=== PATIENT | female | born 1935 | race Two or more races ===

== ENCOUNTER 2017-05-16 11:07 | Inpatient (IN) | payer OTHER ==
[~2017-05-16] VITALS: Ht 157.5 cm; Wt 63.5 kg
[~2017-05-16 11:07] MED LIST: BIOCAL SOFTGEL1 EACH; BUPROPION HYDROC1 GM; DIOVAN HCT 160-1 TAB; INTESTINEX680 MG PO; NAMENDA XR1 EACH; RAZADYNE ER16 M1; SYNTHROID100 MCG; TOPROL XL25 M1; ZANTAC150 MG PO
[2017-05-16] MEDS ORDERED: ECOTRIN81 MG (11:23)
[2017-05-19] MEDS ORDERED: PROTONIX40 MG PO (20:39)
== END 2017-05-19 20:48 | disposition home or self-care (01) | DRG 379 ==
LOC: ER 11:07 → SURH 22:33 → SEC-K 22:33 → SURH 05-17 01:15
PROC: 30233N1 Transfusion of Nonautologous Red Blood Cells into Peripheral Vein, Percutaneous Approach (ICD-10-PCS; principal; 2017-05-17)
PROC: 0DJ08ZZ Inspection of Upper Intestinal Tract, Via Natural or Artificial Opening Endoscopic (ICD-10-PCS; 2017-05-19)
DX: K29.51 Unspecified chronic gastritis with bleeding (principal); K57.31 Diverticulosis of large intestine without perforation or abscess with bleeding; D50.0 Iron deficiency anemia secondary to blood loss (chronic); I10 Essential (primary) hypertension; E03.8 Other specified hypothyroidism; G30.8 Other Alzheimer's disease; F02.80 Dementia in other diseases classified elsewhere, unspecified severity, without behavioral disturbance, psychotic disturbance, mood disturbance, and anxiety; T39.395A Adverse effect of other nonsteroidal anti-inflammatory drugs [NSAID], initial encounter; T39.015A Adverse effect of aspirin, initial encounter; Y92.098 Other place in other non-institutional residence as the place of occurrence of the external cause